=== PATIENT | male | born 1975 | race Asian ===

== ENCOUNTER 2020-10-17 09:57 | Outpatient (CLI) | payer OTHER, SELFPAY ==
--- NOTE | ~2020-10-17 | XR_ITS ---
EXAMINATION: XR chest 2V DATE: 10/17/2020 10:32 INDICATION: Productive cough TECHNIQUE: PA and lateral views of the chest are obtained. COMPARISON: None available FINDINGS: The lungs are free of acute opacities. There is no pleural effusion or pneumothorax. The ca rdiomediastinal silhouette is normal. The visualized bones and soft tissues are unremarkable. IMPRESSION: 1. No acute cardiopulmonary abnormality. Reviewed, dictated and finalized at location B.
== END 2020-10-17 09:58 | disposition home or self-care (01) ==
LOC: CHSIMG 10:02
PROVIDERS: PCP Nurse Practitioner; Visit Provider Nurse Practitioner
DX: R09.3 Abnormal sputum (principal)
CPT/HCPCS: 71046

== ENCOUNTER 2021-01-08 07:59 | Outpatient (CLI) | payer OTHER, SELFPAY ==
--- NOTE | ~2021-01-08 | US_ITS ---
EXAMINATION: US abdomen limited EXAM DATE: 01/08/2021 08:25 INDICATION: Elevated LFT'S, Hepatitis B . TECHNIQUE: Multiple grayscale and Doppler images of the abdomen right upper quadrant were obtained (b y a technologist who performed the scan) and subsequently reviewed. There is no prior study for liliane treadwell. FINDINGS: The pancreatic head and body are normal in appearance. The pancreatic tail is not visualized. Mildl y echogenic liver parenchyma, hepatic steatosis. There are no focal liver lesions identified. Ther e is no evidence of intrahepatic biliary duct dilation. Portal venous flow was seen in the hepatoped al, normal direction and has normal Doppler waveform. No right-sided hydronephrosis. Common bile duct measures 3 mm, which is normal. The gallbladder wall is normal in thickness, with ex pected amount of distention. No sonographic evidence of pericholecystic fluid. There is small polyp measuring 4 mm, not clinically significant. No cholelithiasis. Technologist performing exam reports patient did not demonstrate sonographic Colon's sign. Please note that this sign is less reliable in patients who have received pain medication. IMPRESSION: 1. Hepatic steatosis. 2. Small gallbladder polyp requiring no further follow-up. Reviewed, dictated and finalized at location A. [employer]ICAL TECHNICAL OFFICER
== END 2021-01-08 08:00 | disposition home or self-care (01) ==
PROVIDERS: PCP Family Medicine
DX: R79.89 Other specified abnormal findings of blood chemistry (principal); B19.10 Unspecified viral hepatitis B without hepatic coma
CPT/HCPCS: 76705

== ENCOUNTER 2021-01-29 10:41 | Outpatient (CLI) | payer OTHER, SELFPAY ==
[2021-02-23 21:17] LABS: Hepatitis B DNA PCR 6.89 Log IU/mL
== END 2021-01-29 10:42 | disposition home or self-care (01) ==
LOC: CHSLAB 10:45
PROVIDERS: PCP Family Medicine
DX: B15.9 Hepatitis A without hepatic coma (principal)
CPT/HCPCS: 36415; 87517